=== PATIENT | male | born 1965 | race Caucasian/White ===

== ENCOUNTER 2016-12-19 07:59 | Emergency (ER) | payer OTHER ==
[~2016-12-19] VITALS: Wt 113.6 kg
[2016-12-19] MEDS ORDERED: morphine 4 MG/ML VIAL IV STA (08:58)
[2016-12-19] MEDS ORDERED: ONDANSETRON 4 MG INJ IV STA (08:58)
[2016-12-19] MEDS ORDERED: SOD CHLORIDE 0.9% 1,000 ML IV STA (08:58)
[2016-12-19] MEDS ORDERED: AMPICILLIN/SULB 3 GM/NS (PMX) 100 ML IVPB ONE (09:00)
[2016-12-19] MEDS ORDERED: VANCOMYCIN 1 GM (PMX) 250 ML IVPB ONE (09:00)
[2016-12-19 09:23] LABS: ADD SCAN DIFF NO
[2016-12-19 09:25] LABS: BASOPHIL # 0.1 10^3/ul (0.0-0.1); BASOPHILS % 0.3 % (0.0-2.0); EOSINOPHILS # 0.3 10^3/ul (0.0-0.5); EOSINOPHILS % 1.3 % (0.0-7.0); HEMATOCRIT 47.8 % (42.0-52.0); HEMOGLOBIN 15.9 g/dl (14.0-18.0); LYMPHOCYTES # 4.3 10^3/ul (0.8-2.9); LYMPHOCYTES % 23.1 % (15.0-51.0); MEAN CORPUSCULAR HEMOGLOBIN 32.3 pg (29.0-33.0); MEAN CORPUSCULAR HGB CONC 33.3 g/dl (32.0-37.0); MEAN PLATELET VOLUME 9.9 fl (7.4-10.4); MONOCYTE # 1.1 10^3/ul (0.3-0.9); MONOCYTES % 5.6 % (0.0-11.0); NEUTROPHIL # 12.9 10^3/ul (1.6-7.5); NEUTROPHILS % 69.2 % (39.0-77.0); PLATELET COUNT 268 10^3/UL (140-415); RED BLOOD COUNT 4.93 10^6/ul (4.70-6.10); WHITE BLOOD COUNT 18.7 10^3/ul (4.8-10.8)
[2016-12-19 09:47] LABS: CREATININE 0.64 mg/dl (0.61-1.24)
[2016-12-19 09:48] LABS: CALCIUM 8.8 mg/dl (8.4-10.2)
[2016-12-19] MEDS ORDERED: SOD CHLORIDE 0.9% 100 ML ONE (09:55)
[2016-12-19] MEDS ORDERED: IOHEXOL 300MG/ML 150 ML BTL ONE (09:55)
--- NOTE | 2016-12-19 10:27 | ERA ---
ER Documentation Chief Complaint Date/Time DATE: 12/19/16 TIME: 10:23 Chief Complaint sunus headache for few days. seen at [facility] prior to admit. no fevers HPI 51-year-old male. Diabetic. The patient presents with upper lip and nasal abscess. The patient states approximately 3-4 days of symptoms of a follicle that has become infected just inferior to the right nasal opening. The patient notes significant upper lip swelling and pain, drainage and discharge. He was seen at [facility] 2 days ago. He had laboratory testing and CT. They recommended hospitalization but the patient left AMA. He did not receive antibiotics. He notes worsening swelling at this time. No new medications no tongue swelling, no difficulty breathing or swallowing. He denies any fevers or chills. He does describe some mild sinus pressure but no headache. No neck stiffness. ROS All systems reviewed and are negative except as per history of present illness. Medications Home Meds Active Scripts [Nebulizer Machine] No Conflict Check, 1 U Prov:WESLEY SPENCE MD 12/19/16 Hydrocodone/Acetaminophen (Meadow 10-325 Tablet) 1 Each Tablet, 1 TAB PO Q6H Y for PAIN, #7 TAB Prov:WESLEY SPENCE MD 12/19/16 Ibuprofen* (Motrin*) 800 Mg Tab, 800 MG PO Q6H Y for PAIN AND OR ELEVATED TEMP, #30 TAB Prov:WESLEY SPENCE MD 12/19/16 Cephalexin* (Cephalexin*) 500 Mg Capsule, 500 MG PO Q6, #28 CAP Prov:WESLEY SPENCE MD 12/19/16 Sulfamethoxazole-Trimethoprim* (Bactrim* DS) 800-160 Mg Tab, 1 TAB PO BID, #20 TAB Prov:WESLEY SPENCE MD 12/19/16 Reported Medications Levothyroxine Sodium* (Levothyroxine Sodium*) 200 Mcg Tablet, 200 MCG PO BEFORE BREAKFAST, #30 TAB 12/19/16 Glipizide* (Glipizide*) Unknown Strength Tablet, PO AC BREAKFAST, TAB 12/19/16 Allergies Allergies: Coded Allergies: No Known Allergy (Unverified , 12/19/16) PMhx/Soc History of Surgery: Yes (left shoulder) Anesthesia Reaction: No Hx Neurological Disorder: No Hx Respiratory Disorders: No Hx Cardiac Disorders: Yes (HTN) Hx Miscellaneous Medical Probl: Yes (DM, Hypothyroid) Hx Alcohol Use: Yes Hx Substance Use: No Hx Tobacco Use: Yes Smoking Status: Current every day smoker FmHx Family History: diabetes Physical Exam Vitals Vital Signs Date Time Temp Pulse Resp B/P Pulse Ox O2 Delivery O2 Flow Rate FiO2 12/19/16 11:04 98.8 95 21 177/118 99 Nasal Cannula 2.0 12/19/16 09:00 99.1 80 21 171/108 97 Room Air 12/19/16 08:02 99.1 105 21 171/108 97 Physical Exam General: Well developed, well nourished, no acute distress Head: Normocephalic, atraumatic. Eyes: Pupils equally reactive, EOM intact ENT: Small raised follicle and focal induration of the upper lip right of midline. The patient has an area that is draining purulent material, no significant fluctuance. The nasal septum is intact without swelling. The patient has upper lip swelling. Posterior pharynx without swelling or exudates , normal tongue size, tolerating secretions. Neck: Supple, no lymphadenopathy Respiratory: Lungs clear bilaterally, no distress Cardiovascular: RRR, no murmurs, rubs, or gallops Abdominal: Soft, non-tender, non-distended, no peritoneal signs : Deferred MSK: No edema, no unilateral swelling, 5/5 strength Neurologic: Alert and oriented, moving all extremities, normal speech, no focal weakness, no cerebellar signs Skin: No rash Psych: Normal mood Result Diagram: 12/19/1616 12/19/16 0916 Results 24 hrs Laboratory Tests Test 12/19/16 09:16 Anion Gap 18 Basophils # 0.110^3/ul Basophils % 0.3% Blood Urea Nitrogen 13mg/dl Calcium Level 8.8mg/dl Carbon Dioxide Level 28mmol/L Chloride Level 101mmol/L Creatinine 0.64mg/dl Eosinophils # 0.310^3/ul Eosinophils % 1.3% Glucose Level 125mg/dl Hematocrit 47.8% Hemoglobin 15.9g/dl Lymphocytes # 4.310^3/ul Lymphocytes % 23.1% Mean Corpuscular Hemoglobin 32.3pg Mean Corpuscular Hemoglobin Concent 33.3g/dl Mean Corpuscular Volume 97.0fl Mean Platelet Volume 9.9fl Monocytes # 1.110^3/ul Monocytes % 5.6% Neutrophils # 12.910^3/ul Neutrophils % 69.2% Nucleated Red Blood Cells # 0.010^3/ul Nucleated Red Blood Cells % 0.0/100WBC Platelet Count 81706^3/UL Potassium Level 4.0mmol/L Red Blood Count 4.9310^6/ul Red Cell Distribution Width 13.0% Sodium Level 143mmol/L White Blood Count 18.710^3/ul Current Medications Medications (Trade) Dose Ordered Sig/Emilie Route PRN Reason Start Time Stop Time Status Last Admin Dose Admin Sodium Chloride (NS) 1,000 ml @ 1,000 mls/hr Q1H STAT IV 12/19/16 08:58 12/19/16 09:57 DC 12/19/16 09:22 Morphine Sulfate (morphine) 4 mg ONCE STAT IV 12/19/16 08:58 12/19/16 09:02 DC 12/19/16 09:22 Ondansetron HCl 4 mg 4 mg ONCE STAT IV 12/19/16 08:58 12/19/16 09:02 DC 12/19/16 09:22 Vancomycin HCl 250 ml @ 125 mls/hr ONCE ONCE IVPB 12/19/16 09:00 12/19/16 10:59 DC 12/19/16 10:53 Ampicillin Sodium/ Sulbactam Sodium (Unasyn 3gm/NS (Pmx)) 100 ml @ 100 mls/hr ONCE ONCE IVPB 12/19/16 09:00 12/19/16 09:59 DC 12/19/16 09:42 IV Flush 10 ml 10 ml STK-MED ONCE .ROUTE 12/19/16 09:55 12/19/16 09:56 DC Sodium Chloride (NS) 100 ml @ ud STK-MED ONCE .ROUTE 12/19/16 09:55 12/19/16 09:56 DC Iohexol (Omnipaque 300mg/ ml) 150 ml STK-MED ONCE .ROUTE 12/19/16 09:55 12/19/16 09:56 DC Procedures/MDM EKG, MONITORS, & DIAGNOSTIC IMAGING: CT face with IV contrast: IMPRESSION: 1. There is a 1.3 x 1.5 x 2.6 cm right maxillary labial subcutaneous peripheral enhancing complex fluid collection suggestive of an abscess. There are smooth osseous erosions of the adjacent right anterior maxilla. There are mildly enlarged right level IB lymph nodes which are likely reactive. 2. Pansinus mucosal thickening as detailed above. 3. Soft tissue within the left greater right nasal cavity suggesting polyps or mucosal thickening. Direct inspection may be performed as clinically warranted. 4. Dental disease. Dental examination and/or Panorex imaging is recommended. 5. No acute fracture. Further findings as detailed above. RPTAT: AA LAB INTERPRETATION: Leukocytosis of 18 MEDICAL DECISION MAKING: The patient presents with signs and symptoms consistent with upper lip abscess that has a ruptured and is now draining. His lip swelling is likely secondary to inflammatory changes. No signs of angioedema. No allergic signs or symptoms. Patient is tolerating secretions. No signs of intracranial spread. However, the patient left AMA from another hospital and has not received antibiotics for 2 days. Lower threshold for inpatient hospitalization. I believe he would benefit from laboratory testing, IV antibiotics and CT imaging of the face. If no focal area that requires drainage and the patient continues to be well-appearing, consideration for outpatient management with warm compresses, antibiotics might be reasonable. No evidence of impending airway failure. ER COURSE: The patient's symptoms are improved. Blood pressure improved with home medications. Patient given antibiotics including vancomycin and Unasyn. The patient's CT does show an evidence of an abscess. However the patient has drainage appropriately. I discussed the case with Dr. Todd, on-call ENT. At this time I do not believe that the patient requires I&D given that the abscess is draining. I feel that there are risks involved scarring given complex location of the abscess. Dr. Todd agrees. He recommends warm compresses, gentle compression, oral antibiotics and close outpatient follow-up. The patient was advised to follow-up with primary care physician for prompt referral to ENT. We did discuss return precautions including worsening swelling , severe headache, high fevers. The patient describes understanding. Patient is safe for discharge. I kept the patient and/or family informed of laboratory and diagnostic imaging results throughout the emergency room course. DISPOSITION PLAN: We discussed follow up with the patient's primary care doctor within 24 to 48 hours as needed. We also discussed return to the emergency room for worsening symptoms or worsening condition. Discharge Medications: Bactrim, Keflex, Meadow, Motrin We discussed the use of narcotics including avoidance of operating heavy machinery and driving as well as its addictive properties. Departure Diagnosis: Primary Impression: Abscess of lip Additional Impression: Essential hypertension Condition: Stable WESLEY SPENCE MD Dec 19, 2016 10:27
--- NOTE | 2016-12-19 10:49 | RADRPT ---
PROCEDURE: Noncontrast CT facial bones. CLINICAL INDICATION: Swollen upper lip. Pimple within this region. TECHNIQUE: Noncontrast CT of the facial bones was obtained. Coronal and sagittal re-formations were provided. The administered radiation dose was CTDI vol = 53.89 mGy, DLP = 1091.46 mGy-cm. One or m ore of the following dose reduction techniques were used: Automated exposure control, Adjustment of the mA and/or kV according to patient size, or Use of iterative reconstruction technique. COMPARISON: There are no similar studies submitted for comparison. FINDINGS: Within the right superior maxillary labial subcutaneous soft tissues there is a peripheral enhancing fluid collection measuring 1.3 cm cranial caudally by 1.5 cm anteroposteriorly by 2.6 cm transverse (image 40 series 601, image 31 series 3). Findings are suggestive of a subcutaneous abscess. Ther e is adjacent smooth erosions of the right anterior maxilla. OSSEOUS STRUCTURES: There is no acute fracture. Periapical lucencies in dental caries are noted with in the maxilla as well as the left mandible suggesting dental disease. ORBITS: The bilateral globes are intact.There is no orbital hematoma. SINUSES: There is complete bilateral frontal sinus mucosal thickening. There is near complete bilat eral ethmoid sinus mucosal thickening. There is moderate right and mild left sphenoid sinus mucosal thickening. There is mild bilateral maxillary sinus mucosal thickening with mucoperiosteal thicken ing suggesting chronic sinusitis/osteitis. There is bilateral nasal soft tissue more pronounced on the left which may represent polyps or mucosal thickening. SKULL: The visualized portions of the brain are unremarkable. There are mildly enlarged right level IB lymph nodes which are likely reactive. IMPRESSION: 1. There is a 1.3 x 1.5 x 2.6 cm right maxillary labial subcutaneous peripheral enhancing complex f luid collection suggestive of an abscess. There are smooth osseous erosions of the adjacent right a nterior maxilla. There are mildly enlarged right level IB lymph nodes which are likely reactive. 2. Pansinus mucosal thickening as detailed above. 3. Soft tissue within the left greater right nasal cavity suggesting polyps or mucosal thickening. Direct inspection may be performed as clinically warranted. 4. Dental disease. Dental examination and/or Panorex imaging is recommended. 5. No acute fracture. Further findings as detailed above. RPTAT: AA .Kristofer Garcia MD, MD Date Time Electronically viewed and signed by .Kristofer Garcia MD, MD on 12/19/2016 10:49 .F/
[2016-12-19] MEDS ORDERED: GLIP5TAB13 PO (10:57)
[2016-12-19] MEDS ORDERED: LEVO200T6 PO (10:57)
[2016-12-19] MEDS ORDERED: BACTDS PO (11:30)
[2016-12-19] MEDS ORDERED: CEPH500C PO (11:30)
[2016-12-19] MEDS ORDERED: IBUP800T25 PO (11:30)
[2016-12-19] MEDS ORDERED: HYDR-902 PO (11:30)
[2016-12-19] MEDS ORDERED: Nebulizer Machine (11:38)
[2016-12-19 13:13] VITALS: BP 125/50; PULSE 17; RESP 18; TEMP 98.1
== END 2016-12-19 13:15 | disposition home or self-care (01) ==
LOC: E/R 07:59
DX: K13.0 Diseases of lips (principal); I10 Essential (primary) hypertension; E11.9 Type 2 diabetes mellitus without complications; F17.210 Nicotine dependence, cigarettes, uncomplicated; E03.9 Hypothyroidism, unspecified; Z79.84 Long term (current) use of oral hypoglycemic drugs
CPT/HCPCS: 36415; 70486; 80048; 85025; 96374; 96375; J0295; J2270; J2405; J3370; J7030; Q9967; Z7502; Z7610

== ENCOUNTER 2017-05-20 11:40 | Day surgery (SDC) | payer OTHER ==
[~2017-05-20] VITALS: Ht 170.2 cm; Wt 108.1 kg
[~2017-05-20 11:40] MED LIST: BACTDS PO; CEPH500C PO; GLIP5TAB13 PO; HYDR-902 PO; IBUP800T25 PO; LEVO200T6 PO; Nebulizer Machine
[2017-05-20 12:48] VITALS: Ht 170.2 cm; Wt 108.1 kg
[2017-05-20] MEDS ORDERED: ALBUTEROL PRN (13:04)
[2017-05-20] MEDS ORDERED: [UNRECOGNIZED DRUG - OTHER] (13:04)
[2017-05-20] MEDS ORDERED: MONT4TAB8 PO (13:04)
[2017-05-20] MEDS ORDERED: [UNRECOGNIZED DRUG - OTHER] (13:04)
[2017-05-20] MEDS ORDERED: GLIPIZIDE DAILY (13:04)
[2017-05-20] MEDS ORDERED: ALBU18HF INHALATION (13:04)
[2017-05-20] MEDS ORDERED: ASPIRIN 81 MG (13:04)
[2017-05-20] MEDS ORDERED: PROPOFOL 40 ML ONE (13:07)
[2017-05-20 13:23] VITALS: BP 158/98; PULSE 92; RESP 16
--- NOTE | 2017-05-20 13:50 | OPPN ---
Date/Time of Note Date/Time of Note DATE: 05/20/17 TIME: 13:48 Operative Report Preoperative Diagnosis Positive occult blood in stool Postoperative Diagnosis Sigmoid polyp Internal hemorrhoids Operation/Procedure Performed Colonoscopy and biopsy Provider: MYRNA BARRON MD Anesthesia Type: MAC Estimated blood loss: none Transfusion Required: no Specimens Sigmoid polyp biopsy Grafts/Implants: none Complications: no MYRNA BARRON MD May 20, 2017 13:50
[2017-05-20 14:10] VITALS: BP 145/86; PULSE 102; RESP 14
--- NOTE | 2017-05-21 06:32 | GILP ---
DATE OF PROCEDURE: 05/20/2017 PROCEDURE PERFORMED: Colonoscopy and biopsy. SURGEON: Donte Patel MD PREOPERATIVE DIAGNOSIS: Positive occult blood in stool. POSTOPERATIVE DIAGNOSES: 1. Colonoscopy all the way to the cecum. 2. Small sigmoid colon polyp was removed. 3. Internal hemorrhoids. INDICATION: Mr. Estuardo Delgado is a 52-year-old male patient who had positive occult blood in stool. The patient was scheduled for colonoscopy for further evaluation. The procedure and possible complications were well explained to the patient. The patient understood and consented to the procedure. DESCRIPTION OF PROCEDURE: Under the influence of anesthesia, the colonoscope was carefully introduced in the rectum. Under direct vision, it was advanced all the way to the cecum. FINDINGS: The patient had a small sigmoid colon polyp and it was removed using the biopsy forceps. He had internal hemorrhoids. He tolerated the procedure very well. There was no complication from the procedure. At the end of procedure, he was awake with stable vital signs and he was discharged home in care of his family. IMPRESSION: Please see postop diagnoses. PLAN: Next screening colonoscopy in 10 years. Dictated By: MD ARUN Forde/minnie/castro /Document#: [id number]
== END 2017-05-20 15:25 | disposition home or self-care (01) ==
LOC: GIL 11:40
PROVIDERS: ATTEND Internal Medicine Gastroenterology
DX: K92.1 Melena (principal); D12.5 Benign neoplasm of sigmoid colon; K64.8 Other hemorrhoids; E11.9 Type 2 diabetes mellitus without complications; I10 Essential (primary) hypertension; E78.5 Hyperlipidemia, unspecified; J45.909 Unspecified asthma, uncomplicated
CPT/HCPCS: 45380; 82962; 88305; Z7610

== ENCOUNTER 2018-03-30 11:54 | Emergency (ER) | END 2018-03-30 12:55 | disposition home or self-care (01) ==

== ENCOUNTER 2018-04-02 09:14 | Emergency (ER) | END 2018-04-02 10:50 | disposition home or self-care (01) ==

== ENCOUNTER → 2019-05-16 | Emergency (ER) | payer OTHER ==
[~2019-05-16] VITALS: Ht 170.2 cm; Wt 88.0 kg
[~2019-05-16] MED LIST changes: +ALBU18HF INHALATION; +ALBUTEROL PRN; +ASPIRIN 81 MG; -BACTDS PO; +CEPH-443 PO; -CEPH500C PO; +CHLO3800 TP; +GLIPIZIDE DAILY; -HYDR-902 PO; -IBUP800T25 PO; +IBUP800T48 PO; +IBUPROFEN 600 MG TAB PO ONE; +LIDOCAINE 1% (MDV) 20 ML INJ SC ONE; +MONT4TAB8 PO; +SULF1TAB31 PO; +TRIMETHOPRIM/SULFAMETHOX (DS) TAB PO ONE; +[UNRECOGNIZED DRUG - OTHER]; +[UNRECOGNIZED DRUG - OTHER]
[2019-05-16 19:12] VITALS: BP 147/79; PULSE 82; RESP 19; Ht 170.2 cm; Wt 88.0 kg
--- NOTE | 2019-05-16 20:24 | ERD ---
ER Documentation Chief Complaint Chief Complaint C/O LT CHEECK BUMP X4 DAYS AND NON TRAUMATIC NECK PAIN X1 MONTH HPI 54-year-old male presents with swelling and redness associated with a small pustule on his left cheek for the last 4 days. He has been on an unspecified antibiotic for last 3 days. He feels like the redness and swelling is getting worse over the last day. Denies fevers, vomiting, shortness of breath or chest pain. ROS All systems reviewed and are negative except as per history of present illness. Medications Home Meds Active Scripts Sulfamethoxazole/Trimethoprim* (Bactrim Ds* Tablet) 1 Each Tablet, 1 TAB PO BID for 7 Days, #14 TAB Prov:JUAN SIBLEY MD 05/16/19 Chlorhexidine Gluconate (Chlorhexidine Gluconate) 3,800 Ml Liquid, 3800 ML TP DAILY, #1 BOTTLE Prov:STELLA QUAN PA-C 03/30/18 Cephalexin* (Keflex*) 500 Mg Capsule, 500 MG PO QID for 7 Days, #28 CAP Prov:STELLA QUAN PA-C 03/30/18 Sulfamethoxazole/Trimethoprim* (Bactrim Ds* Tablet) 1 Each Tablet, 1 TAB PO BID, #14 TAB Prov:STELLA QUAN PA-C 03/30/18 [Nebulizer Machine] No Conflict Check, 1 U Prov:WESLEY SPENCE MD 12/19/16 Ibuprofen* (Motrin*) 800 Mg Tab, 800 MG PO Q6H PRN for PAIN AND OR ELEVATED TEMP, #30 TAB Prov:WESLEY SPENCE MD 12/19/16 Reported Medications [Asa 81 Mg. Daily] No Conflict Check 05/20/17 [Lipitor Daily] No Conflict Check 05/20/17 Montelukast Sodium* (Singulair*) 4 Mg Tab.chew, 4 MG PO DAILY, #30 TAB 05/20/17 Albuterol Sulfate* (Ventolin HFA*) 18 Gm Hfa.aer.ad, 2 PUFF INHALATION Q4H, #1 INHALER 05/20/17 [Albuterol Prn] No Conflict Check 05/20/17 [Glipizide Daily] No Conflict Check 05/20/17 [Cozaar Daily] No Conflict Check 05/20/17 Levothyroxine Sodium* (Levothyroxine Sodium*) 200 Mcg Tablet, 200 MCG PO BEFORE BREAKFAST, #30 TAB 12/19/16 Glipizide* (Glipizide*) Unknown Strength Tablet, PO AC BREAKFAST, TAB 12/19/16 Allergies Allergies: Coded Allergies: No Known Allergy (Unverified , 03/30/18) PMhx/Soc History of Surgery: Yes (NASAL SX.) Anesthesia Reaction: No Hx Neurological Disorder: No Hx Respiratory Disorders: Yes (CHRONIC BRONCHITIS) Hx Cardiac Disorders: No Hx Psychiatric Problems: Yes (DEPRESSION , ANXIETY, PANIC ATTACKS) Hx Miscellaneous Medical Probl: Yes (DM,HTN, HIGH CHOLESTEROL,THYROID) Hx Alcohol Use: Yes (SOCIALLY) Hx Substance Use: Yes (METHAMPHETAMINE) Hx Tobacco Use: Yes Smoking Status: Current every day smoker FmHx Family History: No diabetes, No coronary disease, No other Physical Exam Vitals Vital Signs Date Temp Pulse Resp B/P (MAP) Pulse Ox O2 O2 Flow FiO2 Time Delivery Rate 05/16/19 97.5 82 19 147/79 98 19:12 (101) Physical Exam Const: No acute distress Head: Atraumatic Eyes: Normal Conjunctiva ENT: Normal External Ears, Nose and Mouth. Left zygoma area with approximately 2 cm area of swelling and redness with a central pustule. No active discharge. Neck: Full range of motion. No meningismus. Resp: Clear to auscultation bilaterally Cardio: Regular rate and rhythm, no murmurs Abd: Soft, non tender, non distended. Normal bowel sounds Skin: No petechiae or rashes Back: No midline or flank tenderness Ext: No cyanosis, or edema Neur: Awake and alert Psych: Normal Mood and Affect Results 24 hrs Current Medications Medications Dose Sig/Emilie Start Time Status Last (Trade) Ordered Route PRN Stop Time Admin Dose Reason Admin Lidocaine 20 ml ONCE ONCE 05/16/19 DC (Xylocaine SC 19:30 05/16/19 1% (Mdv) 20 19:31 ml) Ibuprofen 600 mg ONCE ONCE 05/16/19 DC 05/16/19 (Motrin) PO 19:30 05/16/19 19:37 19:31 1 tab ONCE ONCE 05/16/19 DC 05/16/19 Trimethoprim/ PO 19:30 05/16/19 19:38 19:31 Sulfamethoxaz ole (Bactrim (Ds)) Procedures/MDM Patient presents with signs and symptoms of a small abscess on his left cheek. He is no signs of sepsis, significant facial cellulitis, orbital cellulitis. Patient is requesting incision and drainage. Procedure note-left facial area was prepped with Betadine. Patient was given ibuprofen and Bactrim double strength p.o. 2 cc of lidocaine was used to gain local anesthesia. Anesthesia was obtained. #11 scalpel was used to incise the wound. Loculations were broken up with a probe. Small amount of pus was expressed. The lesion was not packed due to the small size. Patient tolerated procedure well. Patient presents with a small facial abscess. Patient will be treated with Bactrim and ibuprofen instructions for warm compresses. The patient is uncertain of the name of the antibiotic she is currently taking although he says it is every 6 hours. Patient is advised to take Bactrim as prescribed and continue home medications. Patient is advised to perform warm compresses, return for worsening redness, fevers, new or worsening symptoms with primary care doctor. No signs of necrotizing fasciitis, there is concerning signs or symptoms. The patient was stable with no new complaints during the ER course. Clinically, there is no current evidence to suggest meningitis, sepsis, acute abdomen, pneumonia, stroke, acute coronary syndrome, pulmonary embolism, aortic dissection or any other emergent condition appearing to require further evaluation or hospitalization. Patient counseled regarding my diagnostic impression and care plan. Prior to discharge all questions answered. Pt agrees with treatment plan and understands strict return precautions. Pt is instructed to follow up with primary care provider within 24-48 hours. Precautionary instructions provided including instructions to return to the ER if not improving or for any worsening or changing symptoms or concerns. Disclaimer: Inadvertent spelling and grammatical errors are likely due to EHR/dictation software use and do not reflect on the overall quality of patient care. Also, please note that the electronic time recorded on this note does not necessarily reflect the actual time of the patient encounter. Departure Diagnosis: Primary Impression: Abscess Condition: Stable Patient Instructions: Abscess, Incision And Drainage Referrals: [facility] (PCP) Additional Instructions: Apply warm compresses at home. Recheck for worsening redness, fevers, new worsening symptoms. Take Tylenol or ibuprofen for pain. JUAN SIBLEY MD May 16, 2019 20:24
== END | disposition home or self-care (01) ==
LOC: FTE 18:51
DX: L02.01 Cutaneous abscess of face (principal); E11.9 Type 2 diabetes mellitus without complications; I10 Essential (primary) hypertension; F17.210 Nicotine dependence, cigarettes, uncomplicated; Z79.82 Long term (current) use of aspirin; Z79.84 Long term (current) use of oral hypoglycemic drugs
CPT/HCPCS: 10060; Z7502; Z7610